=== PATIENT | female | born 1995 | race Caucasian/White ===

== ENCOUNTER 2021-06-11 09:55 | Emergency (ER) | payer OTHER ==
[~2021-06-11] VITALS: Ht 160 cm; Wt 95.7 kg
[2021-06-11 11:12] LABS: Source, Urine Clean Catch
[2021-06-11 11:16] LABS: Appearance, Urine Hazy (Clear); Bilirubin, Urine Neg (Neg); Blood, Urine Neg (Neg); Color, Urine Yellow (P-Yellow); Glucose Qualitative, Urine Neg (Neg); Ketones, Urine Neg (Neg); Leukocyte Esterase, Urine Neg (Neg); Nitrite, Urine Neg (Neg); Protein, Urine Neg (Neg); Specific Gravity, Urine 1.025 (1.003-1.022); Urobilinogen, Urine NORM (Normal)
[2021-06-11 11:25] LABS: Red Blood Cells, Urine 0-2 /hpf (0-2)
[2021-06-11 11:26] LABS: Bacteria Few /hpf; Squamous Epithelial Cells Many /hpf (Few)
[2021-06-11] MEDS ORDERED: ONDA4ODT MM (11:47)
== END 2021-06-11 12:20 | disposition home or self-care (01) ==
LOC: ER 09:55
PROVIDERS: Physician Assistant
DX: N91.2 Amenorrhea, unspecified (principal); O99.345 Other mental disorders complicating the puerperium; F53.0 Postpartum depression; R11.2 Nausea with vomiting, unspecified; Z98.51 Tubal ligation status
CPT/HCPCS: 81001; 81025; 99285

== ENCOUNTER 2021-07-04 09:27 | Emergency (ER) | payer OTHER ==
[~2021-07-04] VITALS: Ht 160 cm; Wt 86.2 kg
[~2021-07-04 09:27] MED LIST: ONDA4ODT MM
== END 2021-07-04 11:24 | disposition home or self-care (01) ==
LOC: ER 09:27
DX: J06.9 Acute upper respiratory infection, unspecified (principal); Z20.822 Contact with and (suspected) exposure to COVID-19
CPT/HCPCS: 0031A; 91303; 99282-25

== ENCOUNTER 2021-07-11 06:46 | Emergency (ER) | payer OTHER ==
[~2021-07-11] VITALS: Ht 160 cm; Wt 90.7 kg
[2021-07-11] MEDS ORDERED: Amoxicillin500 MG PO (07:22)
== END 2021-07-11 07:30 | disposition home or self-care (01) ==
LOC: ER 06:46
DX: K04.7 Periapical abscess without sinus (principal); K02.9 Dental caries, unspecified
CPT/HCPCS: 99282

== ENCOUNTER → 2022-02-08 | Outpatient (CLI) | payer OTHER ==
[~2022-02-08] MED LIST changes: +Amoxicillin500 MG PO
== END | disposition home or self-care (01) ==
LOC: LAB 13:04 → LAB SHORT 13:04
DX: R30.9 Painful micturition, unspecified (principal)
CPT/HCPCS: 87086

== ENCOUNTER → 2022-02-13 | Outpatient (CLI) | payer OTHER | END | disposition home or self-care (01) | LOC: LAB 11:05 → LAB SHORT 11:05 | DX: N89.8 Other specified noninflammatory disorders of vagina (principal) | CPT/HCPCS: 87070; 87205 ==